=== PATIENT | male | born 2000 | race Caucasian/White ===

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

== ENCOUNTER 2021-12-11 13:20 | Emergency (ER) | payer OTHER ==
[~2021-12-11] VITALS: Ht 177.8 cm; Wt 87.1 kg
[2021-12-11 13:59] VITALS: BP 144/72
[2021-12-11] MEDS: LIDOCAINE MPF 1% 10 MG/ML VIAL INJ ONE ×2 (15:40→15:52)
--- NOTE | 2021-12-11 15:40 | NUR ---
Ambulated to bed 10 for procedure
[2021-12-11] MEDS ORDERED: BACITRACIN OINT 500 UNITS/GM PKT TP ONE ×2 (16:20)
--- NOTE | 2021-12-11 16:25 | NUR ---
PT WOUND ON L HAND WRAPPED WITH NON ADHERENT AND METAL FINGER SPLINT
[2021-12-11 16:38] VITALS: BP 128/84
== END 2021-12-11 16:39 | disposition home or self-care (01) ==
LOC: MED 13:20
DX: S61.211A Laceration without foreign body of left index finger without damage to nail, initial encounter (principal); K21.9 Gastro-esophageal reflux disease without esophagitis; Z90.49 Acquired absence of other specified parts of digestive tract; W26.0XXA Contact with knife, initial encounter; Y93.89 Activity, other specified; Y92.89 Other specified places as the place of occurrence of the external cause; Y99.8 Other external cause status
CPT/HCPCS: 12001; 90471; 90715; 99283; J2001

== ENCOUNTER 2021-12-14 07:54 | Emergency (ER) | payer OTHER ==
[~2021-12-14] VITALS: Ht 170.2 cm; Wt 85.3 kg
[2021-12-14 08:04] VITALS: BP 120/87
--- NOTE | 2021-12-14 08:22 | NUR ---
PATIENT AMBULATE TO ROOM 5
--- NOTE | 2021-12-14 08:26 | NUR ---
21YR OLD MALE FOR WOUND RECHECK. LACERATION ON November STICHES ON L HAND 1ST DIGIT. DENIES ANY DRAINAGE REDDNESS OR SWELLING. STICHES STILL INTAC. PT IN BED SIDE RAILS DOWN X2 BED AT LOWEST POSITION. NKDA NO MED HX
--- NOTE | 2021-12-14 09:30 | NUR ---
PT TO RETURN ON FRIDAY FOR REMOVAL OF SUTURES. PENDING DC PAPERWORK
[2021-12-14 09:37] VITALS: BP 120/87
--- NOTE | 2021-12-14 09:37 | NUR ---
Patient discharged with v/s stable. Written and verbal after care instructions given and explained. Patient verbalized understanding. Ambulatory with steady gait. All questions addressed prior to discharge. Advised to follow up with PMD.
--- NOTE | 2021-12-14 09:38 | NUR ---
Chart checked and completed. The patient's care was reviewed and supervised by Melanie Treviño RN.
== END 2021-12-14 09:37 | disposition home or self-care (01) ==
LOC: MED 07:54
DX: S61.219A Laceration without foreign body of unspecified finger without damage to nail, initial encounter (principal); K21.9 Gastro-esophageal reflux disease without esophagitis; W26.0XXA Contact with knife, initial encounter; Y93.89 Activity, other specified; Y92.89 Other specified places as the place of occurrence of the external cause; Y99.8 Other external cause status
CPT/HCPCS: 99282

== ENCOUNTER 2021-12-16 12:37 | Emergency (ER) | payer OTHER ==
[~2021-12-16] VITALS: Ht 177.8 cm; Wt 85.3 kg
[2021-12-16 12:46] VITALS: BP 135/79
--- NOTE | 2021-12-16 13:20 | NUR ---
NO NURSING INTERVENTION NEEDED. SEE & TREATED BY DR BOJORQUEZ.
[2021-12-16 14:50] VITALS: BP 135/79
== END 2021-12-16 13:50 | disposition home or self-care (01) ==
LOC: MED 12:37
DX: S69.92XD Unspecified injury of left wrist, hand and finger(s), subsequent encounter (principal); Z48.02 Encounter for removal of sutures; K21.9 Gastro-esophageal reflux disease without esophagitis; X58.XXXA Exposure to other specified factors, initial encounter
CPT/HCPCS: 99281

== ENCOUNTER 2023-11-21 12:12 | Emergency (ER) | payer OTHER ==
[~2023-11-21] VITALS: Ht 177.8 cm; Wt 81.6 kg
[2023-11-21 12:25] VITALS: BP 139/75; PULSE 64; RESP 16; TEMP 97.9; O2SAT 99
[2023-11-21] MEDS: LORATADINE 10 MG TAB PO ONE (12:45)
[2023-11-21] MEDS ORDERED: CETI-24 PO (13:07)
[2023-11-21 13:25] VITALS: BP 139/75; PULSE 64; RESP 16; TEMP 97.9; O2SAT 99
== END 2023-11-21 12:45 | disposition home or self-care (01) ==
LOC: MED 12:12
DX: R21 Rash and other nonspecific skin eruption (principal); L29.9 Pruritus, unspecified; R22.32 Localized swelling, mass and lump, left upper limb; K21.9 Gastro-esophageal reflux disease without esophagitis; Z79.899 Other long term (current) drug therapy
CPT/HCPCS: 99282

== ENCOUNTER 2024-02-11 23:04 | Emergency (ER) | payer OTHER ==
[~2024-02-11] VITALS: Ht 177.8 cm; Wt 86.6 kg
[~2024-02-11 23:04] MED LIST changes: +CETI-24 PO; -IRON65TA PO
[2024-02-11 23:22] VITALS: BP 136/80; PULSE 56; RESP 18; TEMP 97.9; O2SAT 100
[2024-02-12] LABS: BASOPHILS # (AUTO) 0.1 K/uL (0.00-0.22); BASOPHILS % (AUTO) 0.6 % (0.0-2.0); EOSINOPHILS # (AUTO) 0.2 K/uL (0-0.4); EOSINOPHILS % (AUTO) 2.7 % (0.0-4.0); HEMATOCRIT 46.5 % (36-52); HEMOGLOBIN 15.9 g/dL (12.0-18.0); LYMPHOCYTES # (AUTO) 3.3 K/uL (2.0-11.5); LYMPHOCYTES % (AUTO) 40.2 % (20.5-51.1); MEAN CORPUSCULAR HEMOGLOBIN 30 pg (27-31); MEAN CORPUSCULAR HGB CONC 34 g/dL (33-37); MEAN CORPUSCULAR VOLUME 88.2 fL (80-94); MONOCYTES # (AUTO) 0.8 K/uL (0.8-1.0); MONOCYTES % (AUTO) 9.8 % (1.7-9.3); NEUTROPHILS # (AUTO) 3.8 K/uL (1.8-7.7); NEUTROPHILS % (AUTO) 46.7 % (42.2-75.2); PLATELET COUNT (AUTO) 201 K/uL (140-450); RED BLOOD CELL COUNT(AUTO) 5.27 MIL/uL (4.20-6.10); RED CELL DISTRIBUTION WIDTH 12.6 % (11.6-13.7); WHITE BLOOD COUNT (AUTO) 8.2 K/uL (4.8-10.8)
[2024-02-12] MEDS: NACL 0.9% 1,000 ML IV ONE (00:01)
[2024-02-12] MEDS: KETOROLAC 30 MG/ML VIAL IVP ONE (00:07)
[2024-02-12 00:16] LABS: ALBUMIN 4.3 g/dL (3.4-5.0); ANION GAP 9.2 (8-16); CALCIUM 9.2 mg/dL (8.5-10.1); CARBON DIOXIDE 30.6 mmol/L (21-32); CREATININE 1.1 mg/dL (0.6-1.3); POTASSIUM 3.8 mmol/L (3.5-5.1); TOTAL BILIRUBIN 0.5 mg/dL (0.0-1.0); TOTAL PROTEIN, SERUM 7.6 g/dL (6.4-8.2)
[2024-02-12 04:11] VITALS: BP 101/58; PULSE 85; RESP 14; TEMP 97.9; O2SAT 95
== END 2024-02-12 04:11 | disposition home or self-care (01) ==
LOC: MED 23:04
DX: R10.11 Right upper quadrant pain (principal); R07.81 Pleurodynia; R07.89 Other chest pain; R19.7 Diarrhea, unspecified; Z90.49 Acquired absence of other specified parts of digestive tract
CPT/HCPCS: 36415; 80053; 83690; 85025; 96361; 96374; 99285; J1885; J7030